=== PATIENT | male | born 1940 | race Caucasian/White ===

== ENCOUNTER 2016-12-29 17:29 | Emergency (ER) | payer BC, MEDICARE ==
[2016-12-29] MEDS ORDERED: Sodium Chloride 0.9% 10 ML Syringe FLUSH PRN (17:42)
[2016-12-29] MEDS ORDERED: Sodium Chloride 0.9% 2.5 ML Syringe FLUSH PRN (17:42)
--- NOTE | 2016-12-29 17:46 | EDM.PDOC ---
ED HPI GENERAL MEDICAL PROBLEM - General Chief Complaint: General Stated Complaint: UNK Time Seen by Provider: 12/29/16 17:43 Source of Information: Reports: Patient, Family History Limitations: Reports: No Limitations - History of Present Illness INITIAL COMMENTS - FREE TEXT/NARRATIVE: HISTORY AND PHYSICAL: []76-year-old male presenting from [facility] with concerns over elevated INR 4.1 hemoglobin 9.2 using a heart rate of 130 and O2 saturations of 88% History of Present Illness: []Patient was seen in the clinic yesterday the results of his laboratory values was reported today. Dr. Shayna Easley had called prior to the patient presenting. Expressing her concern over the INR low hemoglobin. Review of Systems: As per history of present illness and below otherwise all systems reviewed and negative. Past medical history: As per history of present illness and as reviewed below otherwise noncontributory. Surgical history: As per history of present illness and as reviewed below otherwise noncontributory. Social history: No reported history of drug or alcohol abuse. Family history: As per history of present illness and as reviewed below otherwise noncontributory. Physical exam: Alert gentleman brought in by his daughter and granddaughter. Cooperative with examination. Speaking in full sentences without shortness of breath. He does have COPD. HEENT: Atraumatic, normocehpalic, pupils reactive, negative for conjunctival pallor or scleral icterus, mucous membranes moist, throat clear, neck supple, nontender, trachea midline. Lungs: Clear to auscultation, breath sounds equal bilaterally, chest non tender. Heart: S1S2, regular, negative for clicks, rubs, or JVD. Per EKG patient is in atrial flutter 3-1. Abdomen: Soft, nondistended, nontender. Negative for masses or hepatossplenmegaly. Negative for costovertebral tenderness. Pelvis: Stable nontender. Genitourinary: Deferred. Rectal: Deferred Extremities: Atraumatic, negative for cords or calf pain. Neurovascular unremarkable. Neuro: Awake, alert, oriented. Cranial nerves II through XII unremarkable. Cerebellum unremarkable. Motor and sensory unremarkable throughout. Exam nonfocal. Discussed results with the patient and his family, questions were answered Diagnostics: [CBC CMP and PT/INR chest x-ray EKG troponin] Hemoccult is negative Therapeutics: [O2 ] Impression: [#1 atrial flutter #2 COPD #3 anemia] Plan: [Discharged to home Follow up with your primary care provider May need supplemental oxygen and will need this ordered. ] Definitive disposition and diagnosis as appropriate pending reevaluation and review of above. Onset: Gradual Duration: Chronic - Related Data Allergies Allergy/AdvReac Type Severity Reaction Status Date / Time No Known Allergies Allergy Verified 12/29/16 17:42 Home Meds: Home Meds Budesonide [Pulmicort] 12/29/16 [History] Diltiazem HCl [Diltiazem 24Hr Cd] 360 mg PO DAILY 12/29/16 [History] Docusate Sodium [Colace] 250 mg PO DAILY 12/29/16 [History] Glimepiride [Amaryl] 4 mg PO DAILY 12/29/16 [History] Ipratropium/Albuterol Sulfate [Combivent Respimat Inhal [place]] 1 puff INH QID [History] Levalbuterol HCl [Xopenex] 12/29/16 [History] Losartan [Cozaar] 12.5 mg PO DAILY 12/29/16 [History] Mometasone/Formoterol [Dulera 200-5 MCG] 1 puff INH BID 12/29/16 [History] Omeprazole 2 tab PO DAILY 12/29/16 [History] Spironolactone [Aldactone] 25 mg PO DAILY 12/29/16 [History] Tiotropium [Spiriva HandiHaler] 1 puff INH DAILY 12/29/16 [History] Warfarin [Coumadin] 5 mg PO DAILY 12/29/16 [History] metFORMIN [Glucophage XR] 2 tab PO BID 12/29/16 [History] ED ROS GENERAL - Review of Systems Review Of Systems: ROS reveals no pertinent complaints other than HPI. ED EXAM, GENERAL - Physical Exam Exam: See Below (See dictation) Course - Vital Signs Last Recorded V/S: Last Vital Signs Temp 37.2 C 12/29/16 17:38 Pulse 90 12/29/16 17:38 Resp 20 12/29/16 17:38 BP 122/72 12/29/16 17:38 Pulse Ox 90 L 12/29/16 17:38 - Orders/Labs/Meds Orders: Active Orders 24 hr Category Date Time Status Cardiac Monitoring [RC] . DIRECTED Care 12/29/16 17:42 Active EKG Documentation Completion [RC] STAT Care 12/29/16 17:42 Active Oxygen Therapy, ED [RC] ASDIRECTED Care 12/29/16 17:42 Active Chest 2V [CR] Stat Exams 12/29/16 17:43 Taken Sodium Chloride 0.9% [Saline Flush] Med 12/29/16 17:42 Active 10 ml FLUSH ASDIRECTED PRN Sodium Chloride 0.9% [Saline Flush] Med 12/29/16 17:42 Active 2.5 ml FLUSH ASDIRECTED PRN Saline Lock Insert [OM.PC] Stat Oth 12/29/16 17:42 Ordered Medication Orders Sodium Chloride (Saline Flush) 10 ml FLUSH ASDIRECTED PRN PRN Reason: Keep Vein Open Sodium Chloride (Saline Flush) 2.5 ml FLUSH ASDIRECTED PRN PRN Reason: Keep Vein Open Labs: Laboratory Tests 12/29/16 12/29/16 12/29/16 Range/Units 18:13 18:13 18:13 WBC 8.20 (4.0-11.0) K/uL RBC 4.38 L (4.50-5.90) M/uL Hgb 9.3 L (13.0-17.0) g/dL Hct 30.6 L (38.0-50.0) % MCV 69.9 L (80.0-98.0) fL MCH 21.2 L (27.0-32.0) pg MCHC 30.4 L (31.0-37.0) g/dL RDW Std Deviation 46.6 (28.0-62.0) fl RDW Coeff of Kaylin 19 H (11.0-15.0) % Plt Count 265 (150-400) K/uL MPV 8.60 (7.40-12.00) fL Neut % (Auto) 61.3 (48.0-80.0) % Lymph % (Auto) 24.0 (16.0-40.0) % [place] % (Auto) 10.2 (0.0-15.0) % Eos % (Auto) 3.9 (0.0-7.0) % Baso % (Auto) 0.6 (0.0-1.5) % Neut # (Auto) 5.0 (1.4-5.7) K/uL Lymph # (Auto) 2.0 (0.6-2.4) K/uL [place] # (Auto) 0.8 (0.0-0.8) K/uL Eos # (Auto) 0.3 (0.0-0.7) K/uL Baso # (Auto) 0.1 (0.0-0.1) K/uL Nucleated RBC % 0.0 /100WBC Nucleated RBCs # 0 K/uL INR 4.33 H (0.86-1.11) Sodium 135 L (136-146) mmol/L Potassium 4.2 (3.5-5.1) mmol/L Chloride 100 (98-110) mmol/L Carbon Dioxide 24 (21-31) mmol/L BUN 23 (6.0-23.0) mg/dL Creatinine 0.9 (0.6-1.5) mg/dL Est Cr Clr Drug Dosing 75.44 mL/min Estimated GFR (MDRD) > 60.0 ml/min Glucose 73 (60-110) mg/dL Calcium 9.4 (8.8-10.8) mg/dL Total Bilirubin 0.2 (0.1-1.5) mg/dL AST 18 (5-40) IU/L ALT 17 (8-54) IU/L Alkaline Phosphatase 103 (40-150) Troponin I < 0.10 (0.0-0.29) NG/ML Total Protein 7.4 (6.0-8.0) g/dL Albumin 4.0 (3.4-4.8) g/dL Globulin 3.4 (2.0-3.5) g/dL Albumin/Globulin Ratio 1.2 L (1.3-2.8) Urine Color Urine Appearance Urine pH (5.0-8.0) Ur Specific [place] (1.001-1.035) Urine Protein (NEGATIVE) mg/dL Urine Glucose (UA) (NEGATIVE) mg/dL Urine Ketones (NEGATIVE) mg/dL Urine Occult Blood (NEGATIVE) Urine Nitrite (NEGATIVE) Urine Bilirubin (NEGATIVE) Urine Urobilinogen (<2.0) EU/dL Ur Leukocyte Esterase (NEGATIVE) Urine RBC (0-2/HPF) Urine WBC (0-5/HPF) Ur Epithelial Cells (NONE-FEW) Amorphous Sediment (NEGATIVE) Urine Bacteria (NEGATIVE) 12/29/16 Range/Units 18:13 WBC (4.0-11.0) K/uL RBC (4.50-5.90) M/uL Hgb (13.0-17.0) g/dL Hct (38.0-50.0) % MCV (80.0-98.0) fL MCH (27.0-32.0) pg MCHC (31.0-37.0) g/dL RDW Std Deviation (28.0-62.0) fl RDW Coeff of Kaylin (11.0-15.0) % Plt Count (150-400) K/uL MPV (7.40-12.00) fL Neut % (Auto) (48.0-80.0) % Lymph % (Auto) (16.0-40.0) % [place] % (Auto) (0.0-15.0) % Eos % (Auto) (0.0-7.0) % Baso % (Auto) (0.0-1.5) % Neut # (Auto) (1.4-5.7) K/uL Lymph # (Auto) (0.6-2.4) K/uL [place] # (Auto) (0.0-0.8) K/uL Eos # (Auto) (0.0-0.7) K/uL Baso # (Auto) (0.0-0.1) K/uL Nucleated RBC % /100WBC Nucleated RBCs # K/uL INR (0.86-1.11) Sodium (136-146) mmol/L Potassium (3.5-5.1) mmol/L Chloride (98-110) mmol/L Carbon Dioxide (21-31) mmol/L BUN (6.0-23.0) mg/dL Creatinine (0.6-1.5) mg/dL Est Cr Clr Drug Dosing mL/min Estimated GFR (MDRD) ml/min Glucose (60-110) mg/dL Calcium (8.8-10.8) mg/dL Total Bilirubin (0.1-1.5) mg/dL AST (5-40) IU/L ALT (8-54) IU/L Alkaline Phosphatase (40-150) Troponin I (0.0-0.29) NG/ML Total Protein (6.0-8.0) g/dL Albumin (3.4-4.8) g/dL Globulin (2.0-3.5) g/dL Albumin/Globulin Ratio (1.3-2.8) Urine Color YELLOW Urine Appearance CLEAR Urine pH 6.0 (5.0-8.0) Ur Specific [place] 1.020 (1.001-1.035) Urine Protein NEGATIVE (NEGATIVE) mg/dL Urine Glucose (UA) 250 H (NEGATIVE) mg/dL Urine Ketones NEGATIVE (NEGATIVE) mg/dL Urine Occult Blood NEGATIVE (NEGATIVE) Urine Nitrite NEGATIVE (NEGATIVE) Urine Bilirubin NEGATIVE (NEGATIVE) Urine Urobilinogen 0.2 (<2.0) EU/dL Ur Leukocyte Esterase NEGATIVE (NEGATIVE) Urine RBC NONE SEEN (0-2/HPF) Urine WBC 0-1 (0-5/HPF) Ur Epithelial Cells MODERATE (NONE-FEW) Amorphous Sediment FEW (NEGATIVE) Urine Bacteria FEW (NEGATIVE) Meds: Medications Generic Name Dose Route Start Last Admin Trade Name Freq PRN Reason Stop Dose Admin Sodium Chloride 10 ml 12/29/16 17:42 Saline Flush FLUSH ASDIRECTED PRN Keep Vein Open Sodium Chloride 2.5 ml 12/29/16 17:42 Saline Flush FLUSH ASDIRECTED PRN Keep Vein Open Departure - Departure Time of Disposition: 19:50 Disposition: Home, Self-Care 01 Condition: Good Clinical Impression: Atrial flutter by electrocardiogram COPD (chronic obstructive pulmonary disease) Qualifiers: COPD type: unspecified COPD Qualified Code(s): J44.9 - Chronic obstructive pulmonary disease, unspecified - Discharge Information Referrals: PCP,None [Primary Care Provider] - Forms: ED Department Discharge Additional Instructions: The following information is given to patients seen in the emergency department who are being discharged to home. This information is to outline your options for follow-up care. We provide all patients seen in our emergency department with a follow-up referral. The need for follow-up, as well as the timing and circumstances, are variable depending upon the specifics of your emergency department visit. If you don't have a primary care physician on staff, we will provide you with a referral. We always advise you to contact your personal physician following an emergency department visit to inform them of the circumstance of the visit and for follow-up with them and/or the need for any referrals to a consulting specialist. The emergency department will also refer you to a specialist when appropriate. This referral assures that you have the opportunity for followup care with a specialist. All of these measure are taken in an effort to provide you with optimal care, which includes your followup. Under all circumstances we always encourage you to contact your private physician who remains a resource for coordinating your care. When calling for followup care, please make the office aware that this follow-up is from your recent emergency room visit. If for any reason you are refused follow-up, please contact the [facility] emergency department at and asked to speak to the emergency department charge nurse. Follow-up with Dr. Easley next week May need supplemental oxygen replacement No source of your bleeding was identified History of anemia Hypercoagulation Stop your Coumadin 2 days then resume - My Orders Last 24 Hours: My Active Orders 12/29/16 17:42 Cardiac Monitoring [RC] . DIRECTED EKG Documentation Completion [RC] STAT Oxygen Therapy, ED [RC] ASDIRECTED Sodium Chloride 0.9% [Saline Flush] 10 ml FLUSH ASDIRECTED PRN Sodium Chloride 0.9% [Saline Flush] 2.5 ml FLUSH ASDIRECTED PRN Saline Lock Insert [OM.PC] Stat 12/29/16 17:43 Chest 2V [CR] Stat - Assessment/Plan Last 24 Hours: My Active Orders 12/29/16 17:42 Cardiac Monitoring [RC] . DIRECTED EKG Documentation Completion [RC] STAT Oxygen Therapy, ED [RC] ASDIRECTED Sodium Chloride 0.9% [Saline Flush] 10 ml FLUSH ASDIRECTED PRN Sodium Chloride 0.9% [Saline Flush] 2.5 ml FLUSH ASDIRECTED PRN Saline Lock Insert [OM.PC] Stat 12/29/16 17:43 Chest 2V [CR] Stat
[2016-12-29 18:48] LABS: CHLORIDE,CL 100 mmol/L (98-110); SODIUM,NA 135 mmol/L (136-146)
--- NOTE | 2016-12-31 11:43 | CR ---
EXAM DATE: 12/29/16 PATIENT'S AGE: 76 Patient: BAILEY VALETNIN Facility: [place], [place] Site . Site : 1940 Study: XRay Chest [id number]/22/2017 6:55:49 PM Ordering Physician: Doctor Sommers Final Report: HISTORY: Elevated INR. FINDINGS: PA and lateral chest radiograph demonstrates median sternotomy wires and prior coronary artery bypass grafting. The cardiac silhouette is normal. Pulmonary vasculature is free of cephalization. No lobar consolidation or pleural effusion is seen. There is hyperaeration with flattening of the diaphragm. Linear density is noted in the right lateral base. Bone anchors are seen the right humeral head. IMPRESSION: 1. Prior median sternotomy and coronary artery bypass grafting. 2. Hyperaeration with right base atelectasis or scarring. 3. Otherwise, no acute cardiopulmonary disease. Dictated by Carlita Franks MD @ 12/29/2016 7:40:33 PM Dictated by: Carlita Franks MD @ 12/29/2016 19:40:43 (Electronic Signature) Report Signed by Proxy. SHAHRZAD
== END 2016-12-29 20:06 | disposition home or self-care (01) ==
LOC: MW.ED 17:29
DX: I48.92 Unspecified atrial flutter (principal); D64.9 Anemia, unspecified; J44.9 Chronic obstructive pulmonary disease, unspecified; Z79.899 Other long term (current) drug therapy; Z79.01 Long term (current) use of anticoagulants; Z79.84 Long term (current) use of oral hypoglycemic drugs
CPT/HCPCS: 36415; 71020; 71020-26; 80053; 81001; 84484; 85025; 85610; 93005; 99282; 99284-25

== ENCOUNTER 2017-03-11 16:36 | Emergency (ER) | payer BC, MEDICARE ==
--- NOTE | 2017-03-11 17:15 | EDM.PDOC ---
ED HPI GENERAL MEDICAL PROBLEM - General Stated Complaint: DIFFICULTY BREATHING Time Seen by Provider: 03/11/17 17:09 Source of Information: Reports: Patient History Limitations: Reports: No Limitations - History of Present Illness INITIAL COMMENTS - FREE TEXT/NARRATIVE: HISTORY AND PHYSICAL: []77-year-old male with COPD presents with increased shortness of breath History of Present Illness: []Patient is accompanied by his daughter and granddaughter did take a nebulizer treatment just prior to leaving home Patient has health care provided at [facility] and was seen yesterday Review of Systems: As per history of present illness and below otherwise all systems reviewed and negative. Past medical history: As per history of present illness and as reviewed below otherwise noncontributory. Surgical history: As per history of present illness and as reviewed below otherwise noncontributory. Social history: No reported history of drug or alcohol abuse. Family history: As per history of present illness and as reviewed below otherwise noncontributory. Physical exam: Alert and oriented gentleman who does not look severely distressed. Answering with questions in full sentences he does have to cough occasionally. HEENT: Atraumatic, normocehpalic, pupils reactive, negative for conjunctival pallor or scleral icterus, mucous membranes moist, throat clear, neck supple, nontender, trachea midline. Lungs: Crackles throughout on auscultation, breath sounds equal bilaterally shallow, chest non tender. Heart: S1S2, regular, negative for clicks, rubs, or JVD. Abdomen: Soft, nondistended, nontender. Negative for masses or hepatossplenmegaly. Negative for costovertebral tenderness. Pelvis: Stable nontender. Genitourinary: Deferred. Rectal: Deferred Extremities: Atraumatic, negative for cords or calf pain. Neurovascular unremarkable. Neuro: Awake, alert, oriented. Cranial nerves II through XII unremarkable. Cerebellum unremarkable. Motor and sensory unremarkable throughout. Exam nonfocal. Diagnostics: [CBC CMP chest x-ray] Therapeutics: []DuoNeb Impression: []Exacerbation of COPD Plan: []Discharged to home Prescription written for DuoNeb to his nebulizer treatments Follow up with Dr. Easley next week Definitive disposition and diagnosis as appropriate pending reevaluation and review of above. Onset: Gradual Duration: Hour(s): Location: Reports: Chest Quality: Reports: Ache, Same as Previous Episode Severity: Moderate Improves with: Reports: None Worsens with: Reports: None - Related Data Allergies Allergy/AdvReac Type Severity Reaction Status Date / Time No Known Allergies Allergy Verified 03/11/17 17:18 Home Meds: Home Meds Budesonide [Pulmicort] 12/29/16 [History] Diltiazem HCl [Diltiazem 24Hr Cd] 360 mg PO DAILY 12/29/16 [History] Docusate Sodium [Colace] 250 mg PO DAILY 12/29/16 [History] Glimepiride [Amaryl] 4 mg PO DAILY 12/29/16 [History] Ipratropium/Albuterol Sulfate [Combivent Respimat Inhal [place]] 1 puff INH QID [History] Levalbuterol HCl [Xopenex] 12/29/16 [History] Losartan [Cozaar] 12.5 mg PO DAILY 12/29/16 [History] Mometasone/Formoterol [Dulera 200-5 MCG] 1 puff INH BID 12/29/16 [History] Omeprazole 2 tab PO DAILY 12/29/16 [History] Spironolactone [Aldactone] 25 mg PO DAILY 12/29/16 [History] Tiotropium [Spiriva HandiHaler] 1 puff INH DAILY 12/29/16 [History] Warfarin [Coumadin] 5 mg PO DAILY 12/29/16 [History] metFORMIN [Glucophage XR] 2 tab PO BID 12/29/16 [History] Past Medical History Cardiovascular History: Reports: Afib, Hypertension Respiratory History: Reports: COPD Endocrine/Metabolic History: Reports: Diabetes, Type II - Past Surgical History Cardiovascular Surgical History: Reports: Valve Replacement Social & Family History - Family History Family Medical History: Noncontributory - Tobacco Use Smoking Status *Q: Never Smoker Second Hand Smoke Exposure: No - Caffeine Use Caffeine Use: Reports: Coffee, Soda - Recreational Drug Use Recreational Drug Use: No ED ROS GENERAL - Review of Systems Review Of Systems: ROS reveals no pertinent complaints other than HPI. ED EXAM, GENERAL - Physical Exam Exam: See Below (see dictation) Course - Vital Signs Last Recorded V/S: Last Vital Signs Temp 37.1 C 03/11/17 17:15 Pulse 135 H 02/02/18 18:40 Resp 16 03/11/17 18:40 BP 103/74 03/11/17 18:40 Pulse Ox 97 03/11/17 18:40 - Orders/Labs/Meds Orders: Active Orders 24 hr Category Date Time Status EKG Documentation Completion [RC] STAT Care 03/11/17 17:18 Active Oxygen Therapy, ED [RC] ASDIRECTED Care 03/11/17 17:44 Active RT Aerosol Therapy [RC] ASDIRECTED Care 03/11/17 18:07 Active Chest 2V [CR] Stat Exams 03/11/17 17:16 Taken Sodium Chloride 0.9% [Saline Flush] Med 03/11/17 17:16 Active 10 ml FLUSH ASDIRECTED PRN Sodium Chloride 0.9% [Saline Flush] Med 03/11/17 17:16 Active 2.5 ml FLUSH ASDIRECTED PRN Saline Lock Insert [OM.PC] Stat Oth 03/11/17 17:15 Ordered Medication Orders Sodium Chloride (Saline Flush) 10 ml FLUSH ASDIRECTED PRN PRN Reason: Keep Vein Open Sodium Chloride (Saline Flush) 2.5 ml FLUSH ASDIRECTED PRN PRN Reason: Keep Vein Open Labs: Laboratory Tests 03/11/17 03/11/17 Range/Units 17:25 17:25 WBC 6.85 (4.0-11.0) K/uL RBC 5.04 (4.50-5.90) M/uL Hgb 12.4 L (13.0-17.0) g/dL Hct 38.4 (38.0-50.0) % MCV 76.2 L (80.0-98.0) fL MCH 24.6 L (27.0-32.0) pg MCHC 32.3 (31.0-37.0) g/dL RDW Std Deviation 60.9 (28.0-62.0) fl RDW Coeff of Kaylin 22 H (11.0-15.0) % Plt Count 214 (150-400) K/uL MPV 8.80 (7.40-12.00) fL Neut % (Auto) 50.1 (48.0-80.0) % Lymph % (Auto) 23.6 (16.0-40.0) % [place] % (Auto) 7.6 (0.0-15.0) % Eos % (Auto) 17.5 H (0.0-7.0) % Baso % (Auto) 1.2 (0.0-1.5) % Neut # (Auto) 3.4 (1.4-5.7) K/uL Lymph # (Auto) 1.6 (0.6-2.4) K/uL [place] # (Auto) 0.5 (0.0-0.8) K/uL Eos # (Auto) 1.2 H (0.0-0.7) K/uL Baso # (Auto) 0.1 (0.0-0.1) K/uL Nucleated RBC % 0.0 /100WBC Nucleated RBCs # 0 K/uL Sodium 135 L (136-146) mmol/L Potassium 4.3 (3.5-5.1) mmol/L Chloride 99 (98-110) mmol/L Carbon Dioxide 25 (21-31) mmol/L BUN 14 (6.0-23.0) mg/dL Creatinine 1.2 (0.6-1.5) mg/dL Est Cr Clr Drug Dosing 58.99 mL/min Estimated GFR (MDRD) 58.6 ml/min Glucose 205 H (60-110) mg/dL Calcium 10.0 (8.8-10.8) mg/dL Total Bilirubin 0.2 (0.1-1.5) mg/dL AST 15 (5-40) IU/L ALT 13 (8-54) IU/L Alkaline Phosphatase 111 (40-150) Total Protein 7.4 (6.0-8.0) g/dL Albumin 4.3 (3.4-4.8) g/dL Globulin 3.1 (2.0-3.5) g/dL Albumin/Globulin Ratio 1.4 (1.3-2.8) Meds: Medications Generic Name Dose Route Start Last Admin Trade Name Freq PRN Reason Stop Dose Admin Sodium Chloride 10 ml 03/11/17 17:16 Saline Flush FLUSH ASDIRECTED PRN Keep Vein Open Sodium Chloride 2.5 ml 03/11/17 17:16 Saline Flush FLUSH ASDIRECTED PRN Keep Vein Open Discontinued Medications Generic Name Dose Route Start Last Admin Trade Name Freq PRN Reason Stop Dose Admin Albuterol/Ipratropium 3 ml 03/11/17 18:07 03/11/17 18:32 Duoneb 3.0-0.5 Mg/3 Ml NEB 03/11/17 18:08 3 ml ONETIME ONE Administration Methylprednisolone Sodium Succinate 125 mg 03/11/17 17:16 03/11/17 18:05 Solu-Medrol IVPUSH 03/11/17 17:17 125 mg ONETIME ONE Administration Departure - Departure Time of Disposition: 19:24 Disposition: Home, Self-Care 01 Condition: Good Clinical Impression: COPD (chronic obstructive pulmonary disease) Qualifiers: COPD type: unspecified COPD Qualified Code(s): J44.9 - Chronic obstructive pulmonary disease, unspecified - Discharge Information Instructions: Shortness of Breath, [id number], Chronic Obstructive Pulmonary Disease Exacerbation, [id number] Referrals: Shayna Easley MD [Primary Care Provider] - Forms: ED Department Discharge Additional Instructions: The following information is given to patients seen in the emergency department who are being discharged to home. This information is to outline your options for follow-up care. We provide all patients seen in our emergency department with a follow-up referral. The need for follow-up, as well as the timing and circumstances, are variable depending upon the specifics of your emergency department visit. If you don't have a primary care physician on staff, we will provide you with a referral. We always advise you to contact your personal physician following an emergency department visit to inform them of the circumstance of the visit and for follow-up with them and/or the need for any referrals to a consulting specialist. The emergency department will also refer you to a specialist when appropriate. This referral assures that you have the opportunity for followup care with a specialist. All of these measure are taken in an effort to provide you with optimal care, which includes your followup. Under all circumstances we always encourage you to contact your private physician who remains a resource for coordinating your care. When calling for followup care, please make the office aware that this follow-up is from your recent emergency room visit. If for any reason you are refused follow-up, please contact the [facility] emergency department at and asked to speak to the emergency department charge nurse. You have exacerbation of your COPD Prescription has been written for you to take to [facility] service area for DuoNeb treatments Follow-up with Dr. Easley in [place] - My Orders Last 24 Hours: My Active Orders 03/11/17 17:15 Saline Lock Insert [OM.PC] Stat 03/11/17 17:16 Chest 2V [CR] Stat Sodium Chloride 0.9% [Saline Flush] 10 ml FLUSH ASDIRECTED PRN Sodium Chloride 0.9% [Saline Flush] 2.5 ml FLUSH ASDIRECTED PRN 03/11/17 17:18 EKG Documentation Completion [RC] STAT 03/11/17 17:44 Oxygen Therapy, ED [RC] ASDIRECTED 03/11/17 18:07 RT Aerosol Therapy [RC] ASDIRECTED - Assessment/Plan Last 24 Hours: My Active Orders 03/11/17 17:15 Saline Lock Insert [OM.PC] Stat 03/11/17 17:16 Chest 2V [CR] Stat Sodium Chloride 0.9% [Saline Flush] 10 ml FLUSH ASDIRECTED PRN Sodium Chloride 0.9% [Saline Flush] 2.5 ml FLUSH ASDIRECTED PRN 03/11/17 17:18 EKG Documentation Completion [RC] STAT 03/11/17 17:44 Oxygen Therapy, ED [RC] ASDIRECTED 03/11/17 18:07 RT Aerosol Therapy [RC] ASDIRECTED
[2017-03-11] MEDS ORDERED: Sodium Chloride 0.9% 2.5 ML Syringe FLUSH PRN (17:16)
[2017-03-11] MEDS ORDERED: methylPREDNISolone Sodium Succinate 125 MG/2 ML SDV IVPUSH ONE (17:16)
[2017-03-11] MEDS ORDERED: Sodium Chloride 0.9% 10 ML Syringe FLUSH PRN (17:16)
[2017-03-11] MEDS ORDERED: Albuterol/Ipratropium 3.0-0.5 MG/3 ML Neb Soln NEB ONE (18:07)
--- NOTE | 2017-03-14 11:09 | CR ---
EXAM DATE: 03/11/17 PATIENT'S AGE: 77 Patient: BAILEY VALENTIN Facility: [place], [place] Site . Site : 1940 Study: XRay Chest [id number] 6:28:19 PM Ordering Physician: Doctor Sommers Final Report: CHEST 2 VIEWS INDICATION: Obstructive lung disease. COMPARISON: December 29, 2016. IMPRESSION: Normal heart size and vascular pattern. Lungs are clear. No pneumothorax or pleural abnormality. No overall change Stable hyperinflation. Stable postsurgical changes of previous coronary artery bypass. Dictated by Wade Haynes MD @ Mar 11 2017 6:49PM (Electronic Signature) Report Signed by Proxy. SHAHRZAD
== END 2017-03-11 19:37 | disposition home or self-care (01) ==
LOC: MW.ED 16:36
DX: J44.9 Chronic obstructive pulmonary disease, unspecified (principal); I10 Essential (primary) hypertension; I48.91 Unspecified atrial fibrillation; E11.9 Type 2 diabetes mellitus without complications; Z95.2 Presence of prosthetic heart valve; Z79.01 Long term (current) use of anticoagulants; Z79.84 Long term (current) use of oral hypoglycemic drugs; Z79.899 Other long term (current) drug therapy
CPT/HCPCS: 36415; 71046; 80053; 85025; 93005; 94640; 96374; 99285; J2930; 99283

== ENCOUNTER 2017-04-19 22:49 | Inpatient (IN) | payer MEDICARE, BC ==
[2017-04-19] MEDS ORDERED: Sodium Chloride 0.9% 10 ML Syringe FLUSH PRN (23:02)
--- NOTE | 2017-04-19 23:02 | EDM.PDOC ---
ED HPI GENERAL MEDICAL PROBLEM - General Chief Complaint: Neuro Symptoms/Deficits Stated Complaint: UNK Time Seen by Provider: 04/19/17 22:56 - History of Present Illness INITIAL COMMENTS - FREE TEXT/NARRATIVE: HISTORY AND PHYSICAL: History of present illness: The patient is a 77-year-old male who follows at [facility] and has a history of kvl-[id number] diabetes hypertension COPD A. fib/A flutter for which he is taking Coumadin and presents with daughter with a one year progressive history of forgetfulness and confusion which she is concerned has accelerated over the last few days to one week. Daughter tells me that the one thing that concerned her today was he was having more gait instability and when he was driving the car he had great difficulty controlling the wheel and staying in the [place]. Patient states he has no complaints of headache neck pain back pain chest pain abdominal pain nausea or vomiting and has had no diarrhea. He has no urinary complaints and the patient lives with the daughter who says he 's been eating very well. He has not had any fevers or upper respiratory symptoms. She says he has not had any recent falls. Patient also has a history of a valve replacement with a porcine valve and follows only with Dr. Easley at [facility]. I asked the daughter when the patient was last there and she says about a week ago and she said she did not have a dialogue about these ongoing progressive symptoms. In my conversation with the patient he started talking about how he was visiting with a nurse in [facility] today talking about his medications and the daughter states that he was not there that they used to live there and that the story is not correct. Patient has much better long-term memory than short-term and overall is confused and thinks it is 1979. As I was interviewing the patient and the family at bedside we did the point-of- care glucose and when the daughter knew the number she says that that is not unusual for him to be very variable and run on the high side. I asked her whether or not his provider in the clinic was adjusting his medication or adding any meds and she said no Review of systems: As per history of present illness and below otherwise all systems reviewed and negative. Past medical history: As per history of present illness and as reviewed below otherwise noncontributory. Surgical history: As per history of present illness and as reviewed below otherwise noncontributory. Social history: No reported history of drug or alcohol abuse. Family history: As per history of present illness and as reviewed below otherwise noncontributory. Physical exam: Gen.: Well-developed well-nourished man who is nontoxic and ambulated into the ED and was wobbly/ataxic without distress. Vital signs are noted by me. Speech is intact without slurring HEENT: Atraumatic, normocephalic, pupils reactive, negative for conjunctival pallor or scleral icterus, mucous membranes moist, throat clear, neck supple, nontender, trachea midline. Is no cervical adenopathy or nuchal rigidity Lungs: There are coarse breath sounds bilaterally without any overt wheezing or stridor, there is no work of breathing breath sounds equal bilaterally, chest nontender. Heart: S1S2, regular, rate but irregular rhythm consistent with his A. fib/A flutter, there is no overt murmurs appreciated Abdomen: Soft, nondistended, nontender. Negative for masses or hepatosplenomegaly. Negative for costovertebral tenderness. Pelvis: Stable nontender. Genitourinary: Deferred. Rectal: Deferred. Extremities: Atraumatic, negative for cords or calf pain. Neurovascular unremarkable. No pedal edema or leg asymmetry and full range of motion Neuro: Awake, alert, oriented to person and place but not time Cranial nerves II through XII unremarkable. Cerebellum unremarkable. Motor and sensory unremarkable throughout. Exam nonfocal. The patient has no drift and gait is as assessed above Skin: Normal turgor no evidence of any rashes or lesions and no diaphoresis Diagnostics: EKG CBC CMP INR and serum ketones hemoglobin A1c TSH troponin UA chest x-ray CT scan of the head lactic acid, blood cultures 2 Therapeutics: IV O2 monitor Lantus, Levaquin [id number]: Case was discussed with our hospitalist Dr. Ann who would like the patient to be treated as a pneumonia with Levaquin after blood cultures and lactic acid are sent. He Would also like me to give Lantus 15 units subcutaneous for the hyperglycemia. He is aware of the patient's accelerated confusion with new gait ataxia and will address that tomorrow with more imaging. I will discussed this conversation and all test results with the patient and daughter at bedside and plan for inpatient admission with telemetry Critical care time excluding procedures:31min Impression: Acute on chronic confusion with ataxia, etiology unclear stable; history of atrial flutter on Coumadin, hyperglycemia with mild ketosis, bibasilar pneumonia Definitive disposition and diagnosis as appropriate pending reevaluation and review of above. - Related Data Allergies Allergy/AdvReac Type Severity Reaction Status Date / Time No Known Allergies Allergy Verified 04/19/17 22:59 Home Meds: Home Meds Budesonide [Pulmicort] 12/29/16 [History] Diltiazem HCl [Diltiazem 24Hr Cd] 360 mg PO DAILY 12/29/16 [History] Docusate Sodium [Colace] 250 mg PO DAILY 12/29/16 [History] Glimepiride [Amaryl] 4 mg PO DAILY 12/29/16 [History] Ipratropium/Albuterol Sulfate [Combivent Respimat Inhal [place]] 1 puff INH QID [History] Levalbuterol HCl [Xopenex] 12/29/16 [History] Losartan [Cozaar] 12.5 mg PO DAILY 12/29/16 [History] Mometasone/Formoterol [Dulera 200-5 MCG] 1 puff INH BID 12/29/16 [History] Omeprazole 2 tab PO DAILY 12/29/16 [History] Spironolactone [Aldactone] 25 mg PO DAILY 12/29/16 [History] Tiotropium [Spiriva HandiHaler] 1 puff INH DAILY 12/29/16 [History] Warfarin [Coumadin] 5 mg PO DAILY 12/29/16 [History] metFORMIN [Glucophage XR] 2 tab PO BID 12/29/16 [History] Past Medical History Cardiovascular History: Reports: Afib, Hypertension Respiratory History: Reports: COPD Endocrine/Metabolic History: Reports: Diabetes, Type II - Past Surgical History Cardiovascular Surgical History: Reports: Valve Replacement Social & Family History - Family History Family Medical History: Noncontributory - Tobacco Use Smoking Status *Q: Never Smoker Second Hand Smoke Exposure: No - Caffeine Use Caffeine Use: Reports: Coffee, Soda - Recreational Drug Use Recreational Drug Use: No ED ROS GENERAL - Review of Systems Review Of Systems: ROS reveals no pertinent complaints other than HPI. ED EXAM, GENERAL - Physical Exam Exam: See Below (See dictation) Course - Vital Signs Last Recorded V/S: Last Vital Signs Temp 36.6 C 04/19/17 23:00 Pulse 91 04/19/17 23:56 Resp 18 04/19/17 23:56 BP 120/68 04/19/17 23:56 Pulse Ox 93 L 04/19/17 23:56 - Orders/Labs/Meds Orders: Active Orders 24 hr Category Date Time Status Patient Status [ADT] Stat ADT 04/20/17 00:10 Ordered Cardiac Monitoring [RC] . DIRECTED Care 04/19/17 23:02 Active EKG Documentation Completion [RC] STAT Care 04/19/17 23:02 Active Oxygen Therapy, ED [RC] ASDIRECTED Care 04/19/17 23:02 Active Pulse Oximetry [RC] ASDIRECTED Care 04/19/17 23:02 Active Chest 1V Frontal [CR] Stat Exams 04/19/17 23:13 Taken Head wo Cont [CT] Stat Exams 04/19/17 23:13 Taken CULTURE BLOOD [BC] Stat Lab 04/20/17 00:06 Ordered CULTURE BLOOD [BC] Stat Lab 04/20/17 00:06 Ordered LACTATE WITH REFLEX [BG] Stat Lab 04/20/17 00:06 Ordered Insulin Glarg,Human.Rec.Analog [LantUS Solostar] Med 04/20/17 00:09 Once 15 units SUBCUT BEDTIME ONE Levofloxacin/Dextrose 5%-Water [Levaquin in D5W 750 MG/ Med 04/20/17 00:06 Ordered 150 ML] 750 mg Premix Bag 1 bag IV ONETIME Sodium Chloride 0.9% [Saline Flush] Med 04/19/17 23:02 Active 10 ml FLUSH ASDIRECTED PRN Sodium Chloride 0.9% [Saline Flush] Med 04/19/17 23:02 Active 2.5 ml FLUSH ASDIRECTED PRN Blood Culture x2 Reflex Set [OM.PC] Stat Oth 04/20/17 00:06 Ordered Saline Lock Insert [OM.PC] Stat Oth 04/19/17 23:02 Ordered Medication Orders Levofloxacin/Dextrose 750 mg/ (Premix) 150 mls @ 100 mls/hr IV ONETIME ONE Stop: 04/20/17 01:35 Sodium Chloride (Saline Flush) 10 ml FLUSH ASDIRECTED PRN PRN Reason: Keep Vein Open Sodium Chloride (Saline Flush) 2.5 ml FLUSH ASDIRECTED PRN PRN Reason: Keep Vein Open Labs: Laboratory Tests 04/19/17 04/19/17 04/19/17 Range/Units 23:09 23:15 23:15 WBC 11.01 H (4.0-11.0) K/uL RBC 4.54 (4.50-5.90) M/uL Hgb 11.6 L (13.0-17.0) g/dL Hct 35.4 L (38.0-50.0) % MCV 78.0 L (80.0-98.0) fL MCH 25.6 L (27.0-32.0) pg MCHC 32.8 (31.0-37.0) g/dL RDW Std Deviation 53.3 (28.0-62.0) fl RDW Coeff of [place] 19 H (11.0-15.0) % Plt Count 214 (150-400) K/uL MPV 9.60 (7.40-12.00) fL Neut % (Auto) 85.6 H (48.0-80.0) % Lymph % (Auto) 5.4 L (16.0-40.0) % [place] % (Auto) 8.4 (0.0-15.0) % Eos % (Auto) 0.4 (0.0-7.0) % Baso % (Auto) 0.2 (0.0-1.5) % Neut # (Auto) 9.4 H (1.4-5.7) K/uL Lymph # (Auto) 0.6 (0.6-2.4) K/uL [place] # (Auto) 0.9 H (0.0-0.8) K/uL Eos # (Auto) 0.0 (0.0-0.7) K/uL Baso # (Auto) 0.0 (0.0-0.1) K/uL Nucleated RBC % 0.0 /100WBC Nucleated RBCs # 0 K/uL INR Sodium 128 L (136-148) mmol/L Potassium 4.4 (3.5-5.1) mmol/L Chloride 93 L (98-107) mmol/L Carbon Dioxide 24.3 (21.0-32.0) mmol/L BUN 18 (7.0-18.0) mg/dL Creatinine 1.1 (0.8-1.3) mg/dL Est Cr Clr Drug Dosing TNP Estimated GFR (MDRD) > 60.0 ml/min Glucose 283 H (74-106) mg/dL POC Glucose 335 H (60-110) mg/dL Hemoglobin A1c (4.5-6.2) % Calcium 8.8 (8.5-10.1) mg/dL Total Bilirubin 0.7 (0.2-1.0) mg/dL AST 20 (15-37) IU/L ALT 18 (14-63) IU/L Alkaline Phosphatase 98 (46-116) U/L Troponin I < 0.050 (0.000-0.056) ng/mL Total Protein 7.3 (6.4-8.2) g/dL Albumin 3.4 (3.4-5.0) g/dL Globulin 3.9 H (2.0-3.5) g/dL Albumin/Globulin Ratio 0.9 L (1.3-2.8) TSH 3rd Generation 1.34 (0.36-3.74) uIU/mL Urine Color Urine Appearance Urine pH (5.0-8.0) Ur Specific [place] (1.001-1.035) Urine Protein (NEGATIVE) mg/dL Urine Glucose (UA) (NEGATIVE) mg/dL Urine Ketones (NEGATIVE) mg/dL Urine Occult Blood (NEGATIVE) Urine Nitrite (NEGATIVE) Urine Bilirubin (NEGATIVE) Urine Ictotest Urine Urobilinogen (<2.0) EU/dL Ur Leukocyte Esterase (NEGATIVE) Urine RBC (0-2/HPF) Urine WBC (0-5/HPF) Ur Epithelial Cells (NONE-FEW) Urine Bacteria (NEGATIVE) Ketones (NEG) 04/19/17 04/19/17 04/19/17 Range/Units 23:15 23:15 23:15 WBC (4.0-11.0) K/uL RBC (4.50-5.90) M/uL Hgb (13.0-17.0) g/dL Hct (38.0-50.0) % MCV (80.0-98.0) fL MCH (27.0-32.0) pg MCHC (31.0-37.0) g/dL RDW Std Deviation (28.0-62.0) fl RDW Coeff of [place] (11.0-15.0) % Plt Count (150-400) K/uL MPV (7.40-12.00) fL Neut % (Auto) (48.0-80.0) % Lymph % (Auto) (16.0-40.0) % [place] % (Auto) (0.0-15.0) % Eos % (Auto) (0.0-7.0) % Baso % (Auto) (0.0-1.5) % Neut # (Auto) (1.4-5.7) K/uL Lymph # (Auto) (0.6-2.4) K/uL [place] # (Auto) (0.0-0.8) K/uL Eos # (Auto) (0.0-0.7) K/uL Baso # (Auto) (0.0-0.1) K/uL Nucleated RBC % /100WBC Nucleated RBCs # K/uL INR 2.43 Sodium (136-148) mmol/L Potassium (3.5-5.1) mmol/L Chloride (98-107) mmol/L Carbon Dioxide (21.0-32.0) mmol/L BUN (7.0-18.0) mg/dL Creatinine (0.8-1.3) mg/dL Est Cr Clr Drug Dosing Estimated GFR (MDRD) ml/min Glucose (74-106) mg/dL POC Glucose (60-110) mg/dL Hemoglobin A1c 12.0 H (4.5-6.2) % Calcium (8.5-10.1) mg/dL Total Bilirubin (0.2-1.0) mg/dL AST (15-37) IU/L ALT (14-63) IU/L Alkaline Phosphatase (46-116) U/L Troponin I (0.000-0.056) ng/mL Total Protein (6.4-8.2) g/dL Albumin (3.4-5.0) g/dL Globulin (2.0-3.5) g/dL Albumin/Globulin Ratio (1.3-2.8) TSH 3rd Generation (0.36-3.74) uIU/mL Urine Color Urine Appearance Urine pH (5.0-8.0) Ur Specific [place] (1.001-1.035) Urine Protein (NEGATIVE) mg/dL Urine Glucose (UA) (NEGATIVE) mg/dL Urine Ketones (NEGATIVE) mg/dL Urine Occult Blood (NEGATIVE) Urine Nitrite (NEGATIVE) Urine Bilirubin (NEGATIVE) Urine Ictotest Urine Urobilinogen (<2.0) EU/dL Ur Leukocyte Esterase (NEGATIVE) Urine RBC (0-2/HPF) Urine WBC (0-5/HPF) Ur Epithelial Cells (NONE-FEW) Urine Bacteria (NEGATIVE) Ketones SMALL H (NEG) 04/19/17 Range/Units 23:24 WBC (4.0-11.0) K/uL RBC (4.50-5.90) M/uL Hgb (13.0-17.0) g/dL Hct (38.0-50.0) % MCV (80.0-98.0) fL MCH (27.0-32.0) pg MCHC (31.0-37.0) g/dL RDW Std Deviation (28.0-62.0) fl RDW Coeff of [place] (11.0-15.0) % Plt Count (150-400) K/uL MPV (7.40-12.00) fL Neut % (Auto) (48.0-80.0) % Lymph % (Auto) (16.0-40.0) % [place] % (Auto) (0.0-15.0) % Eos % (Auto) (0.0-7.0) % Baso % (Auto) (0.0-1.5) % Neut # (Auto) (1.4-5.7) K/uL Lymph # (Auto) (0.6-2.4) K/uL [place] # (Auto) (0.0-0.8) K/uL Eos # (Auto) (0.0-0.7) K/uL Baso # (Auto) (0.0-0.1) K/uL Nucleated RBC % /100WBC Nucleated RBCs # K/uL INR Sodium (136-148) mmol/L Potassium (3.5-5.1) mmol/L Chloride (98-107) mmol/L Carbon Dioxide (21.0-32.0) mmol/L BUN (7.0-18.0) mg/dL Creatinine (0.8-1.3) mg/dL Est Cr Clr Drug Dosing Estimated GFR (MDRD) ml/min Glucose (74-106) mg/dL POC Glucose (60-110) mg/dL Hemoglobin A1c (4.5-6.2) % Calcium (8.5-10.1) mg/dL Total Bilirubin (0.2-1.0) mg/dL AST (15-37) IU/L ALT (14-63) IU/L Alkaline Phosphatase (46-116) U/L Troponin I (0.000-0.056) ng/mL Total Protein (6.4-8.2) g/dL Albumin (3.4-5.0) g/dL Globulin (2.0-3.5) g/dL Albumin/Globulin Ratio (1.3-2.8) TSH 3rd Generation (0.36-3.74) uIU/mL Urine Color YELLOW Urine Appearance CLEAR Urine pH 5.5 (5.0-8.0) Ur Specific [place] 1.020 (1.001-1.035) Urine Protein TRACE (NEGATIVE) mg/dL Urine Glucose (UA) >=1000 (NEGATIVE) mg/dL Urine Ketones 40 H (NEGATIVE) mg/dL Urine Occult Blood NEGATIVE (NEGATIVE) Urine Nitrite NEGATIVE (NEGATIVE) Urine Bilirubin SMALL H (NEGATIVE) Urine Ictotest NEGATIVE Urine Urobilinogen 0.2 (<2.0) EU/dL Ur Leukocyte Esterase NEGATIVE (NEGATIVE) Urine RBC 0-2 (0-2/HPF) Urine WBC 0-1 (0-5/HPF) Ur Epithelial Cells RARE (NONE-FEW) Urine Bacteria FEW (NEGATIVE) Ketones (NEG) Meds: Medications Generic Name Dose Route Start Last Admin Trade Name Freq PRN Reason Stop Dose Admin Levofloxacin/Dextrose 750 mg/ 150 mls @ 100 mls/hr 04/20/17 00:06 Premix IV 04/20/17 01:35 ONETIME ONE Sodium Chloride 10 ml 04/19/17 23:02 Saline Flush FLUSH ASDIRECTED PRN Keep Vein Open Sodium Chloride 2.5 ml 04/19/17 23:02 Saline Flush FLUSH ASDIRECTED PRN Keep Vein Open Departure - Departure Time of Disposition: 00:13 Disposition: Admitted As Inpatient 65 Condition: Good Clinical Impression: Confusion, Hyperglycemia Pneumonia Qualifiers: Pneumonia type: due to unspecified organism Laterality: bilateral Lung location : lower lobe of lung Qualified Code(s): J18.9 - Pneumonia, unspecified organism - Discharge Information Referrals: PCP,None [Primary Care Provider] - Forms: ED Department Discharge - My Orders Last 24 Hours: My Active Orders 04/19/17 23:02 Cardiac Monitoring [RC] . DIRECTED EKG Documentation Completion [RC] STAT Oxygen Therapy, ED [RC] ASDIRECTED Pulse Oximetry [RC] ASDIRECTED Sodium Chloride 0.9% [Saline Flush] 10 ml FLUSH ASDIRECTED PRN Sodium Chloride 0.9% [Saline Flush] 2.5 ml FLUSH ASDIRECTED PRN Saline Lock Insert [OM.PC] Stat 04/19/17 23:13 Chest 1V Frontal [CR] Stat Head wo Cont [CT] Stat 04/20/17 00:06 CULTURE BLOOD [BC] Stat CULTURE BLOOD [BC] Stat LACTATE WITH REFLEX [BG] Stat Levofloxacin/Dextrose 5%-Water [Levaquin in D5W 750 MG/150 ML] 750 mg Premix Bag 1 bag IV ONETIME Blood Culture x2 Reflex Set [OM.PC] Stat 04/20/17 00:09 Insulin Glarg,Human.Rec.Analog [LantUS Solostar] 15 units SUBCUT BEDTIME ONE 04/20/17 00:10 Patient Status [ADT] Stat - Assessment/Plan Last 24 Hours: My Active Orders 04/19/17 23:02 Cardiac Monitoring [RC] . DIRECTED EKG Documentation Completion [RC] STAT Oxygen Therapy, ED [RC] ASDIRECTED Pulse Oximetry [RC] ASDIRECTED Sodium Chloride 0.9% [Saline Flush] 10 ml FLUSH ASDIRECTED PRN Sodium Chloride 0.9% [Saline Flush] 2.5 ml FLUSH ASDIRECTED PRN Saline Lock Insert [OM.PC] Stat 04/19/17 23:13 Chest 1V Frontal [CR] Stat Head wo Cont [CT] Stat 04/20/17 00:06 CULTURE BLOOD [BC] Stat CULTURE BLOOD [BC] Stat LACTATE WITH REFLEX [BG] Stat Levofloxacin/Dextrose 5%-Water [Levaquin in D5W 750 MG/150 ML] 750 mg Premix Bag 1 bag IV ONETIME Blood Culture x2 Reflex Set [OM.PC] Stat 04/20/17 00:09 Insulin Glarg,Human.Rec.Analog [LantUS Solostar] 15 units SUBCUT BEDTIME ONE 04/20/17 00:10 Patient Status [ADT] Stat
[2017-04-19 23:52] LABS: CHLORIDE,CL 93 mmol/L (98-107); SODIUM,NA 128 mmol/L (136-148)
[2017-04-20] MEDS ORDERED: Levofloxacin/Dextrose 5%-Water 750 MG in Premix Bag 1 BAG IV ONE (00:06)
[2017-04-20] MEDS ORDERED: Insulin Glargine,Human Rec. Analog 100 Units/ML 3 ML Pen SUBCUT ONE (00:09)
[2017-04-20] MEDS: Sodium Chloride 0.9% 1,000 ML IV SCH ×2 (00:30→22:22)
[2017-04-20] MEDS: Sodium Chloride 0.9% 2.5 ML Syringe FLUSH PRN ×2 (00:30→00:31)
[2017-04-20] MEDS ORDERED: Sodium Chloride 0.9% 1,000 ML IV SCH (01:15)
[2017-04-20] MEDS: Albuterol/Ipratropium 3.0-0.5 MG/3 ML Neb Soln NEB SCH ×5 (01:43→23:43)
[2017-04-20] MEDS ORDERED: Albuterol/Ipratropium 4 GM Inhalation Spray INH PRN (02:56)
[2017-04-20 05:36] LABS: CHLORIDE,CL 94 mmol/L (98-107); SODIUM,NA 127 mmol/L (136-148)
[2017-04-20] MEDS: Tiotropium Inhaler 18 MCG Inhalation Powder Cap Kit of 5 INH SCH (08:35)
--- NOTE | 2017-04-20 09:04 | PCM.HP ---
H&P History of Present Illness - General Date of Service: 04/20/17 Admit Problem/Dx: Admission Diagnosis/Problem Admission Diagnosis/Problem Confusion Source of Information: Patient - History of Present Illness Initial Comments - Free Text/Narative: This is a 77-year-old male who is being admitted secondary to increased confusion/forgetfulness, patient has a significant past medical history of type 2 diabetes mellitus, hypertension, COPD, atrial fibrillation/atrial flutter. When trying to assess the patient today he appeared confused and was not a good historian in regards to his medical condition. According to family the patient confusion and forgetfulness has been progressing over the past year however has increased in the past few days. There does not appear to be any neurological dysfunction or weakness at this point in time. - Related Data Allergies/Adverse Reactions: Allergies Allergy/AdvReac Type Severity Reaction Status Date / Time No Known Allergies Allergy Verified 04/20/17 02:44 Home Medications: Home Meds Albuterol [Proventil HFA] 2 puff INH Q4HR PRN 04/20/17 [History] Albuterol [Proventil Neb Soln] 0.63 mg NEB Q6HR PRN 04/20/17 [History] Diltiazem HCl [Diltiazem 24Hr Cd] 360 mg PO DAILY 04/20/17 [History] Docusate Sodium [Colace] 250 mg PO DAILY 04/20/17 [History] Ferrous Sulfate 325 mg PO BID 04/20/17 [History] Furosemide [Lasix] 20 mg PO DAILY 04/20/17 [History] Glimepiride 4 mg PO DAILY 04/20/17 [History] Ipratropium/Albuterol Sulfate [Combivent Respimat Inhal [place]] 1 puff IH Q6H PRN 04/20/17 [History] Losartan [Cozaar] 25 mg PO DAILY 04/20/17 [History] Mometasone/Formoterol [Dulera 200-5 MCG] 1 puff INH Q6HR PRN 04/20/17 [History] Omeprazole 40 mg PO DAILY 04/20/17 [History] Spironolactone [Aldactone] 25 mg PO DAILY 04/20/17 [History] Tiotropium [Spiriva] 1 puff INH DAILY 04/20/17 [History] Warfarin [Coumadin] 5 mg PO DAILY 04/20/17 [History] metFORMIN HCl [Metformin HCl] 1,000 mg PO BID 04/20/17 [History] Past Medical History HEENT History: Reports: Hard of Hearing Cardiovascular History: Reports: Afib, Heart Valve Replacement, Hypertension Respiratory History: Reports: COPD Gastrointestinal History: Reports: GERD Musculoskeletal History: Reports: None Neurological History: Reports: None Psychiatric History: Reports: None Endocrine/Metabolic History: Reports: Diabetes, Type II Hematologic History: Reports: None Immunologic History: Reports: None Oncologic (Cancer) History: Reports: None Dermatologic History: Reports: None - Infectious Disease History Infectious Disease History: Reports: None - Past Surgical History Head Surgeries/Procedures: Reports: None HEENT Surgical History: Reports: Cataract Surgery Cardiovascular Surgical History: Reports: Valve Replacement Musculoskeletal Surgical History: Reports: Shoulder Surgery Social & Family History - Family History Family Medical History: Noncontributory Endocrine/Metabolic: Reports: Diabetes, type II - Tobacco Use Smoking Status *Q: Never Smoker Used Tobacco, but Quit: Yes Month/Year Tobacco Last Used: 47 Second Hand Smoke Exposure: No - Caffeine Use Caffeine Use: Reports: Coffee - Recreational Drug Use Recreational Drug Use: No H&P Review of Systems - Review of Systems: Review Of Systems: ROS reveals no pertinent complaints other than HPI. Exam - Exam Exam: See Below - Vital Signs Vital Signs: Last Vital Signs Temp 37.1 C 04/20/17 04:37 Pulse 93 04/20/17 04:37 Resp 20 04/20/17 04:37 BP 113/54 L 04/20/17 04:37 Pulse Ox 93 L 04/20/17 04:37 Weight: 85.321 kg - Exam Quality Assessment: Supplemental Oxygen General: Cooperative Lungs: Decreased Breath Sounds, Wheezing Cardiovascular: Tachycardia GI/Abdominal Exam: Normal Bowel Sounds - Patient Data Lab Results Last 24 hrs: Laboratory Results - last 24 hr 04/20/17 04/20/17 04/20/17 Range/Units 04:55 04:55 04:55 WBC 10.33 (4.0-11.0) K/uL RBC 4.02 L (4.50-5.90) M/uL Hgb 10.1 L (13.0-17.0) g/dL Hct 31.1 L (38.0-50.0) % MCV 77.4 L (80.0-98.0) fL MCH 25.1 L (27.0-32.0) pg MCHC 32.5 (31.0-37.0) g/dL RDW Std Deviation 51.9 (28.0-62.0) fl RDW Coeff of Kaylin 18 H (11.0-15.0) % Plt Count 169 (150-400) K/uL MPV 9.10 (7.40-12.00) fL Neut % (Auto) 83.4 H (48.0-80.0) % Lymph % (Auto) 6.2 L (16.0-40.0) % [place] % (Auto) 9.7 (0.0-15.0) % Eos % (Auto) 0.5 (0.0-7.0) % Baso % (Auto) 0.2 (0.0-1.5) % Neut # (Auto) 8.6 H (1.4-5.7) K/uL Lymph # (Auto) 0.6 (0.6-2.4) K/uL [place] # (Auto) 1.0 H (0.0-0.8) K/uL Eos # (Auto) 0.1 (0.0-0.7) K/uL Baso # (Auto) 0.0 (0.0-0.1) K/uL Nucleated RBC % 0.0 /100WBC Nucleated RBCs # 0 K/uL INR 2.45 Sodium 127 L (136-148) mmol/L Potassium 4.1 (3.5-5.1) mmol/L Chloride 94 L (98-107) mmol/L Carbon Dioxide 23.8 (21.0-32.0) mmol/L BUN 16 (7.0-18.0) mg/dL Creatinine 0.9 (0.8-1.3) mg/dL Est Cr Clr Drug Dosing 74.25 mL/min Estimated GFR (MDRD) > 60.0 ml/min Glucose 267 H (74-106) mg/dL POC Glucose (60-110) mg/dL Calcium 8.2 L (8.5-10.1) mg/dL Magnesium 1.2 L (1.5-2.0) mg/dL 04/20/17 Range/Units 06:10 WBC (4.0-11.0) K/uL RBC (4.50-5.90) M/uL Hgb (13.0-17.0) g/dL Hct (38.0-50.0) % MCV (80.0-98.0) fL MCH (27.0-32.0) pg MCHC (31.0-37.0) g/dL RDW Std Deviation (28.0-62.0) fl RDW Coeff of Kaylin (11.0-15.0) % Plt Count (150-400) K/uL MPV (7.40-12.00) fL Neut % (Auto) (48.0-80.0) % Lymph % (Auto) (16.0-40.0) % [place] % (Auto) (0.0-15.0) % Eos % (Auto) (0.0-7.0) % Baso % (Auto) (0.0-1.5) % Neut # (Auto) (1.4-5.7) K/uL Lymph # (Auto) (0.6-2.4) K/uL [place] # (Auto) (0.0-0.8) K/uL Eos # (Auto) (0.0-0.7) K/uL Baso # (Auto) (0.0-0.1) K/uL Nucleated RBC % /100WBC Nucleated RBCs # K/uL INR Sodium (136-148) mmol/L Potassium (3.5-5.1) mmol/L Chloride (98-107) mmol/L Carbon Dioxide (21.0-32.0) mmol/L BUN (7.0-18.0) mg/dL Creatinine (0.8-1.3) mg/dL Est Cr Clr Drug Dosing mL/min Estimated GFR (MDRD) ml/min Glucose (74-106) mg/dL POC Glucose 286 H (60-110) mg/dL Calcium (8.5-10.1) mg/dL Magnesium (1.5-2.0) mg/dL Result Diagrams: 04/20/17 04:55 04/20/17 04:55 *Q Meaningful Use (ADM) - VTE *Q VTE Criteria *Q: - Stroke *Q Stroke Criteria *Q: - AMI *Q AMI Criteria *Q: Problem List Initiated/Reviewed/Updated: Yes Orders Last 24hrs: Active Orders 24 hr Category Date Time Status Blood Glucose Check, Bedside [RC] QIDACANDBED Care 04/20/17 07:30 Active Neuro Check [RC] Q4HR Care 04/20/17 01:06 Active RT Aerosol Therapy [RC] ASDIRECTED Care 04/20/17 01:08 Active Telemetry Monitoring [Cardiac Monitoring] [RC] Q8H Care 04/20/17 00:50 Active [place] [employer] Diet [DIET] Diet 04/20/17 Breakfast Active Ang Head wo Cont [MR] Routine Exams 04/20/17 00:55 Stop Req Ang Head wo Cont [MR] Routine Exams 04/20/17 08:00 Ordered Brain w Cont [MR] Routine Exams 04/20/17 08:00 Ordered MRA Neck Without Contrast [Ang Neck wo Cont] [MR] Exams 04/20/17 08:00 Ordered Routine Albuterol/Ipratropium [Combivent Respimat] Med 04/20/17 02:56 Active 0 gm INH Q6H PRN Albuterol/Ipratropium [DuoNeb 3.0-0.5 MG/3 ML] Med 04/20/17 01:08 Active 3 ml NEB Q6HRRT Diltiazem [Cardizem CD] Med 04/20/17 09:00 Active 360 mg PO DAILY Ferrous Sulfate Med 04/20/17 08:00 Active 325 mg PO BIDMEALS Furosemide [Lasix] Med 04/20/17 09:00 Active 20 mg PO DAILY Glimepiride Med 04/20/17 09:00 Active 4 mg PO DAILY Insulin Glarg,Human.Rec.Analog [LantUS Solostar] Med 04/20/17 09:00 Active 10 units SUBCUT BIDAC Levofloxacin/Dextrose 5%-Water [Levaquin in D5W 750 MG/ Med 04/21/17 00:30 Active 150 ML] 750 mg Premix Bag 1 bag IV Q24H Losartan [Cozaar] Med 04/20/17 09:00 Active 25 mg PO DAILY Omeprazole Med 04/20/17 09:00 Active 40 mg PO DAILY Sodium Chloride 0.9% [Normal Saline] 1,000 ml Med 04/20/17 00:30 Active IV ASDIRECTED Sodium Chloride 0.9% [Normal Saline] 1,000 ml Med 04/20/17 01:15 Active IV ASDIRECTED Spironolactone [Aldactone] Med 04/20/17 09:00 Active 25 mg PO DAILY Tiotropium [Spiriva HandiHaler] Med 04/20/17 09:00 Active 18 mcg INH DAILY Warfarin [Coumadin] Med 04/20/17 16:00 Active 5 mg PO 1600 Medication Orders Albuterol/Ipratropium (Duoneb 3.0-0.5 Mg/3 Ml) 3 ml NEB Q6HRRT [facility] Last Admin: 04/20/17 06:03 Dose: 3 ml Admin: 04/20/17 01:43 Dose: 3 ml Albuterol/Ipratropium (Combivent Respimat) 0 gm INH Q6H PRN PRN Reason: Shortness of Breath Diltiazem HCl (Cardizem Cd) 360 mg PO DAILY [facility] Ferrous Sulfate (Ferrous Sulfate) 325 mg PO BIDMEALS [facility] Furosemide (Lasix) 20 mg PO DAILY [facility] Glimepiride (Glimepiride) 4 mg PO DAILY [facility] Sodium Chloride (Normal Saline) 1,000 mls @ 50 mls/hr IV ASDIRECTED [facility] Last Admin: 04/20/17 00:30 Dose: 50 mls/hr Levofloxacin/Dextrose 750 mg/ (Premix) 150 mls @ 100 mls/hr IV Q24H [facility] Sodium Chloride (Normal Saline) 1,000 mls @ 50 mls/hr IV ASDIRECTED [facility] Insulin Glargine (Lantus Solostar) 10 units SUBCUT BIDAC [facility] Losartan Potassium (Cozaar) 25 mg PO DAILY [facility] Omeprazole (Omeprazole) 40 mg PO DAILY [facility] Sodium Chloride (Saline Flush) 10 ml FLUSH ASDIRECTED PRN PRN Reason: Keep Vein Open Last Admin: 04/20/17 00:31 Dose: 10 ml Sodium Chloride (Saline Flush) 2.5 ml FLUSH ASDIRECTED PRN PRN Reason: Keep Vein Open Last Admin: 04/20/17 00:31 Dose: 2.5 ml Admin: 04/20/17 00:30 Dose: 2.5 ml Spironolactone (Aldactone) 25 mg PO DAILY [facility] Tiotropium [place] (Spiriva Handihaler) 18 mcg INH DAILY [facility] Last Admin: 04/20/17 08:35 Dose: 1 puff Warfarin Sodium (Coumadin) 5 mg PO 1600 [facility] Assessment/Plan Comment:: This is a 77-year-old male presenting with increased confusion which is acute on chronic in nature, he has a significant past medical history of COPD, type 2 diabetes, atrial fibrillation/atrial flutter. Assessment/plan 1, shortness of breath, leukocytosis likely secondary to acute exacerbation of COPD symptoms along with a bibasilar pneumonia #2. Acute on chronic confusion with ataxia differential diagnosis includes age onset dementia versus ischemic event versus hyperglycemia versus hypoxemia 3. Type 2 diabetes controlled with insulin therapy as well as oral hypoglycemic medication 4. Atrial fibrillation/atrial flutter controlled with rate control medication along with chronic Coumadin therapy -Patient to be placed on Levaquin, sputum cultures as well as blood cultures drawn -For COPD, patient is on Solu-Medrol, duo nebs, restart of home inhalers -For the patient's type 2 diabetes high dose insulin sliding scale along with Lantus in the evening -Patient is rate controlled with Cardizem Inpatient stay anticipated length of stay greater than 2 midnights.
[2017-04-20] MEDS: Ferrous Sulfate 325 MG Tab PO SCH ×2 (09:11→17:46)
[2017-04-20] MEDS: Glimepiride 4 MG Tab PO SCH (09:11)
[2017-04-20] MEDS: Insulin Glargine,Human Rec. Analog 100 Units/ML 3 ML Pen SUBCUT SCH ×2 (09:20→10:49)
[2017-04-20] MEDS: Omeprazole 20 MG Cap.CR PO SCH (09:30)
--- NOTE | 2017-04-20 09:53 | CT ---
EXAM DATE: 04/20/17 PATIENT'S AGE: 77 Patient: BAILEY VALENTIN Facility: [place], [place] Site . Site : 1940 Study: CT Head [id number]/13/2018 11:38:26 PM Ordering Physician: Cm Serrano Final Report: INDICATION: AMS, general weakness TECHNIQUE: CT Head without contrast. COMPARISON: None. FINDINGS: There is no sign of intracranial hemorrhage or mass effect. Diffuse cerebral atrophy. Nonspecific low-attenuation along the periventricular white matter, most likely related to chronic microvascular disease. Remote infarct within the left basal ganglia. The meehan-white differentiation is preserved. No abnormal intra-axial or extra-axial fluid collection. No acute disease of the visualized paranasal sinuses and mastoid air cells. No fracture evident. No scalp hematoma/ laceration. IMPRESSION: No acute intracranial process. Dictated by: Jered Wolfe MD @ 04/19/2017 23:47:42 (Electronic Signature) Report Signed by Proxy. [facility]
--- NOTE | 2017-04-20 09:54 | CR ---
EXAM DATE: 04/20/17 PATIENT'S AGE: 77 Patient: BAILEY VALENTIN Facility: [place], [place] Site . Site : 1940 Study: XRay Chest [id number]/13/2018 11:39:16 PM Ordering Physician: Cm Serrano Final Report: Indication: Altered mental status, general weakness Technique: Chest 1 view Comparison: March 11, 2017. Findings/Impression: Stable cardiac size. New patchy opacity at both lung bases may represent atelectasis or infection. No sign of pleural effusion. No pneumothorax. No significant osseous findings. Dictated by Risa Piper MD @ Apr 19 2017 11:47PM (Electronic Signature) Report Signed by Proxy. [facility]
[2017-04-20] MEDS ORDERED: Insulin Aspart 100 Units/ML 3 ML Pen SUBCUT SCH (10:04)
[2017-04-20] MEDS ORDERED: Magnesium Sulfate/Water 4 GM in Premix Bag 1 BAG IV ONE (10:27)
[2017-04-20] MEDS: Diltiazem 180 MG Cap.CD PO SCH (10:46)
[2017-04-20] MEDS: Insulin Aspart 100 Units/ML 3 ML Pen SUBCUT SCH ×3 (12:31→17:49)
--- NOTE | 2017-04-20 13:00 | MR ---
EXAMINATION: MR of the head without contrast, MRA of the head, and MRA of the neck. TECHNIQUE: Multiplanar and multisequence imaging of the head without intravenous contrast. Diffusion weighted sequences were performed. [id number] imaging obtained through the head and neck with MIP reconstructions. Contrast was not administered. Moderate motion artifact is noted on the time-of-fli ght sequences. HISTORY: Confusion. FINDINGS: The cerebral hemispheres and deep nuclei are without hemorrhage, mass, edema or atrophy. Small T2 FLA IR hyperintensities in the white matter likely small areas of chronic ischemia. No evidence for restr icted diffusion. No extraaxial collections or hemorrhage. The ventricular system is of normal size and configuration without hydrocephalus. The brainstem and cerebellum are without hemorrhage, mass, edema, gliosis or atrophy. The carotid and basilar artery flow voids are intact. Venous sinuses are patent. Trace fluid noted within the right mastoid air cells. No internal auditory canal or cerebellopontine angle masses. The paranasal sinuses are clear. The craniocervical juncti on is unremarkable. MRA head: The distal internal carotid arteries appear normal. Vertebral basilar system is normal. Lik nacho origin of the left [employer]. The right posterior cerebral artery appears normal. Motion obscures fine detail within the otherwise normal middle and anterior cerebral arteries. Anterior communicatin g artery is normal. No definite aneurysm identified. MRA neck: Three-vessel origin on aortic arch is noted. The lower common carotid, internal carotid kiet tebral arteries are not well characterized due to motion. Vertebral arteries appear codominant. IMPRESSION: 1. Moderate small vessel ischemic changes. 2. No evidence of an acute infarct. 3. Intra and extra cranial arterial circulation is not adequately visualized secondary to motion keys kiet no gross abnormality identified.
[2017-04-20] MEDS: Losartan 50 MG Tab PO SCH (17:44)
[2017-04-20] MEDS: Spironolactone 25 MG Tab PO SCH (17:44)
[2017-04-20] MEDS: Furosemide 20 MG Tab PO SCH (17:45)
[2017-04-20] MEDS: Warfarin 5 MG Tab PO SCH (17:46)
[2017-04-20] MEDS ORDERED: Insulin Glargine,Human Rec. Analog 100 Units/ML 3 ML Pen SUBCUT SCH (21:00)
[2017-04-21] MEDS ORDERED: Levofloxacin/Dextrose 5%-Water 750 MG in Premix Bag 1 BAG IV SCH (00:30)
[2017-04-21] MEDS: Albuterol/Ipratropium 3.0-0.5 MG/3 ML Neb Soln NEB SCH ×3 (05:40→18:21)
[2017-04-21 05:56] LABS: CHLORIDE,CL 99 mmol/L (98-107); SODIUM,NA 132 mmol/L (136-148)
[2017-04-21] MEDS: Insulin Aspart 100 Units/ML 3 ML Pen SUBCUT SCH ×3 (07:08→17:25)
[2017-04-21] MEDS ORDERED: Polyethylene Glycol 3350 Powder 17 GM Packet PO SCH (09:00)
[2017-04-21] MEDS: Tiotropium Inhaler 18 MCG Inhalation Powder Cap Kit of 5 INH SCH (09:06)
[2017-04-21] MEDS: Losartan 50 MG Tab PO SCH (10:19)
[2017-04-21] MEDS: Spironolactone 25 MG Tab PO SCH (10:19)
[2017-04-21] MEDS: Furosemide 20 MG Tab PO SCH (10:25)
[2017-04-21] MEDS: Diltiazem 180 MG Cap.CD PO SCH (10:25)
[2017-04-21] MEDS: Omeprazole 20 MG Cap.CR PO SCH (10:26)
[2017-04-21] MEDS: Glimepiride 4 MG Tab PO SCH (10:26)
[2017-04-21] MEDS: Ferrous Sulfate 325 MG Tab PO SCH ×2 (10:26→17:21)
[2017-04-21] MEDS: Warfarin 5 MG Tab PO SCH (17:21)
--- NOTE | 2017-04-21 21:08 | PCM.DCSUM1 ---
Discharge Summary - Hospital Course HPI Initial Comments: Discharge Summary Date of admission: 04/20/17 Date of discharge: 04/21/17 Admitting diagnosis: #1. Shortness of breath, leukocytosis secondary to acute exacerbation of COPD along with bibasilar pneumonia #2. Acute on chronic confusion with ataxia differential diagnosis includes age onset dementia versus ischemic event versus hyperglycemia versus hypoxemia #3. Type 2 diabetes controlled with insulin therapy and oral hyperglycemic medication #4. Atrial fibrillation/atrial flutter controlled with rate control medication along with Coumadin therapy #5. Discharge diagnoses: #1. COPD exacerbation with bibasilar pneumonia now resolving patient is stable with decreased leukocytosis. #2. Patient is now baseline for his acute confusion likely etiology was metabolic in nature #3. #4. #5. Consultations: None Procedures: None Hospitalization course: Patient was admitted on 04/20/2017 secondary to his acute confusion and COPD exacerbation and bilateral pneumonia, patient was started on Levaquin for his pneumonia, patient was also treated with Solu- Medrol and duo nebs and oxygen support for his COPD exacerbation. A MRI was done of the head and the neck and it did not show any ischemic events. Patient did have an abnormal sodium level along with a elevated glucose level and taking into account the patient's pneumonia bilateral that was seen on imaging it is likely the patient had metabolic encephalopathy secondary to these etiologies and as we began to correct them patient very quickly came back to baseline and was told longer confused. Disposition on discharge: Home Condition on discharge: Stable - Discharge Data Discharge Date: 04/21/17 Discharge Disposition: Home, Self-Care 01 Condition: Fair - Discharge Plan Prescriptions/Med Rec: Levofloxacin [Levaquin] 750 mg PO DAILY 7 Days #7 tab Home Medications: Home Meds Albuterol [Proventil HFA] 2 puff INH Q4HR PRN 04/20/17 [History] Albuterol [Proventil Neb Soln] 0.63 mg NEB Q6HR PRN 04/20/17 [History] Diltiazem HCl [Diltiazem 24Hr Cd] 360 mg PO DAILY 04/20/17 [History] Docusate Sodium [Colace] 250 mg PO DAILY 04/20/17 [History] Ferrous Sulfate 325 mg PO BID 04/20/17 [History] Furosemide [Lasix] 20 mg PO DAILY 04/20/17 [History] Glimepiride 4 mg PO DAILY 04/20/17 [History] Ipratropium/Albuterol Sulfate [Combivent Respimat Inhal [place]] 1 puff IH Q6H PRN 04/20/17 [History] Losartan [Cozaar] 25 mg PO DAILY 04/20/17 [History] Mometasone/Formoterol [Dulera 200 MCG/5 MCG] 1 puff INH Q6HR PRN 04/20/17 [ History] Omeprazole 40 mg PO DAILY 04/20/17 [History] Spironolactone [Aldactone] 25 mg PO DAILY 04/20/17 [History] Tiotropium [Spiriva HandiHaler] 1 puff INH DAILY 04/20/17 [History] Warfarin [Coumadin] 5 mg PO DAILY 04/20/17 [History] metFORMIN HCl [Metformin HCl] 1,000 mg PO BID 04/20/17 [History] Levofloxacin [Levaquin] 750 mg PO DAILY 7 Days #7 tab 04/21/17 [Rx] Patient Handouts: Confusion, Levofloxacin tablets, Community-Acquired Pneumonia , Adult, [id number] Referrals: [facility] [Outside] (Please call your primary care provider to schedule a one week post-hospital follow-up appointment.) - Discharge Summary/Plan Comment DC Time >30 min.: No - Patient Data Vitals - Most Recent: Last Vital Signs Temp 37.1 C 04/21/17 16:00 Pulse 66 04/21/17 16:00 Resp 20 04/21/17 16:00 BP 113/61 04/21/17 16:00 Pulse Ox 96 04/21/17 16:00 Weight - Most Recent: 85.321 kg I&O - Last 24 hours: Intake & Output 04/21/17 04/21/17 04/21/17 06:59 14:59 22:59 Intake Total 3397 839 6114 Output Total 540 1050 Balance 823 664 107 Lab Results - Last 24 hrs: Laboratory Results - last 24 hr 04/21/17 04/21/17 04/21/17 Range/Units 05:06 05:06 05:06 WBC 7.37 (4.0-11.0) K/uL RBC 3.85 L (4.50-5.90) M/uL Hgb 9.6 L (13.0-17.0) g/dL Hct 30.1 L (38.0-50.0) % MCV 78.2 L (80.0-98.0) fL MCH 24.9 L (27.0-32.0) pg MCHC 31.9 (31.0-37.0) g/dL RDW Std Deviation 52.9 (28.0-62.0) fl RDW Coeff of Kaylin 18 H (11.0-15.0) % Plt Count 191 (150-400) K/uL MPV 9.40 (7.40-12.00) fL Neut % (Auto) 80.2 H (48.0-80.0) % Lymph % (Auto) 8.7 L (16.0-40.0) % Crawford % (Auto) 9.5 (0.0-15.0) % Eos % (Auto) 1.6 (0.0-7.0) % Baso % (Auto) 0.0 (0.0-1.5) % Neut # (Auto) 5.9 H (1.4-5.7) K/uL Lymph # (Auto) 0.6 (0.6-2.4) K/uL Crawford # (Auto) 0.7 (0.0-0.8) K/uL Eos # (Auto) 0.1 (0.0-0.7) K/uL Baso # (Auto) 0.0 (0.0-0.1) K/uL Nucleated RBC % 0.0 /100WBC Nucleated RBCs # 0 K/uL INR 2.25 Sodium 132 L (136-148) mmol/L Potassium 4.8 (3.5-5.1) mmol/L Chloride 99 (98-107) mmol/L Carbon Dioxide 27.6 (21.0-32.0) mmol/L BUN 14 (7.0-18.0) mg/dL Creatinine 0.8 (0.8-1.3) mg/dL Est Cr Clr Drug Dosing 83.53 mL/min Estimated GFR (MDRD) > 60.0 ml/min Glucose 240 H (74-106) mg/dL POC Glucose (60-110) mg/dL Calcium 8.3 L (8.5-10.1) mg/dL Magnesium 1.6 (1.5-2.0) mg/dL 04/21/17 04/21/17 04/21/17 Range/Units 06:20 11:53 11:56 WBC (4.0-11.0) K/uL RBC (4.50-5.90) M/uL Hgb (13.0-17.0) g/dL Hct (38.0-50.0) % MCV (80.0-98.0) fL MCH (27.0-32.0) pg MCHC (31.0-37.0) g/dL RDW Std Deviation (28.0-62.0) fl RDW Coeff of Kaylin (11.0-15.0) % Plt Count (150-400) K/uL MPV (7.40-12.00) fL Neut % (Auto) (48.0-80.0) % Lymph % (Auto) (16.0-40.0) % Crawford % (Auto) (0.0-15.0) % Eos % (Auto) (0.0-7.0) % Baso % (Auto) (0.0-1.5) % Neut # (Auto) (1.4-5.7) K/uL Lymph # (Auto) (0.6-2.4) K/uL Crawford # (Auto) (0.0-0.8) K/uL Eos # (Auto) (0.0-0.7) K/uL Baso # (Auto) (0.0-0.1) K/uL Nucleated RBC % /100WBC Nucleated RBCs # K/uL INR Sodium (136-148) mmol/L Potassium (3.5-5.1) mmol/L Chloride (98-107) mmol/L Carbon Dioxide (21.0-32.0) mmol/L BUN (7.0-18.0) mg/dL Creatinine (0.8-1.3) mg/dL Est Cr Clr Drug Dosing mL/min Estimated GFR (MDRD) ml/min Glucose (74-106) mg/dL POC Glucose 231 H 363 H 255 H (60-110) mg/dL Calcium (8.5-10.1) mg/dL Magnesium (1.5-2.0) mg/dL 03/15/18 Range/Units 16:33 WBC (4.0-11.0) K/uL RBC (4.50-5.90) M/uL Hgb (13.0-17.0) g/dL Hct (38.0-50.0) % MCV (80.0-98.0) fL MCH (27.0-32.0) pg MCHC (31.0-37.0) g/dL RDW Std Deviation (28.0-62.0) fl RDW Coeff of Kaylin (11.0-15.0) % Plt Count (150-400) K/uL MPV (7.40-12.00) fL Neut % (Auto) (48.0-80.0) % Lymph % (Auto) (16.0-40.0) % Crawford % (Auto) (0.0-15.0) % Eos % (Auto) (0.0-7.0) % Baso % (Auto) (0.0-1.5) % Neut # (Auto) (1.4-5.7) K/uL Lymph # (Auto) (0.6-2.4) K/uL Crawford # (Auto) (0.0-0.8) K/uL Eos # (Auto) (0.0-0.7) K/uL Baso # (Auto) (0.0-0.1) K/uL Nucleated RBC % /100WBC Nucleated RBCs # K/uL INR Sodium (136-148) mmol/L Potassium (3.5-5.1) mmol/L Chloride (98-107) mmol/L Carbon Dioxide (21.0-32.0) mmol/L BUN (7.0-18.0) mg/dL Creatinine (0.8-1.3) mg/dL Est Cr Clr Drug Dosing mL/min Estimated GFR (MDRD) ml/min Glucose (74-106) mg/dL POC Glucose 144 H (60-110) mg/dL Calcium (8.5-10.1) mg/dL Magnesium (1.5-2.0) mg/dL GLORIA Results - Last 24 hrs: Microbiology 04/20/17 00:28 Aerobic Blood Culture - Preliminary Blood - Venous - Lab Draw NO GROWTH AFTER 1 DAY Anaerobic Blood Culture - Preliminary NO GROWTH AFTER 1 DAY 04/20/17 00:23 Aerobic Blood Culture - Preliminary Blood - Venous NO GROWTH AFTER 1 DAY Anaerobic Blood Culture - Preliminary NO GROWTH AFTER 1 DAY Med Orders - Current: Current Medications Discontinued Medications Albuterol/Ipratropium (Duoneb 3.0-0.5 Mg/3 Ml) 3 ml NEB Q6HRRT [facility] Last Admin: 04/21/17 18:21 Dose: 3 ml Albuterol/Ipratropium (Combivent Respimat) 0 gm INH Q6H PRN PRN Reason: Shortness of Breath Diltiazem HCl (Cardizem Cd) 360 mg PO DAILY [facility] Last Admin: 04/21/17 10:25 Dose: 360 mg Ferrous Sulfate (Ferrous Sulfate) 325 mg PO BIDMEALS [facility] Last Admin: 04/21/17 17:21 Dose: 325 mg Furosemide (Lasix) 20 mg PO DAILY [facility] Last Admin: 04/21/17 10:25 Dose: 20 mg Glimepiride (Glimepiride) 4 mg PO DAILY [facility] Last Admin: 04/21/17 10:26 Dose: 4 mg Levofloxacin/Dextrose 750 mg/ (Premix) 150 mls @ 100 mls/hr IV ONETIME ONE Stop: 04/20/17 01:35 Last Admin: 04/20/17 00:31 Dose: 100 mls/hr Sodium Chloride (Normal Saline) 1,000 mls @ 50 mls/hr IV ASDIRECTED [facility] Last Admin: 04/20/17 22:22 Dose: 50 mls/hr Levofloxacin/Dextrose 750 mg/ (Premix) 150 mls @ 100 mls/hr IV Q24H [facility] Last Admin: 04/20/17 23:43 Dose: 100 mls/hr Sodium Chloride (Normal Saline) 1,000 mls @ 50 mls/hr IV ASDIRECTED [facility] Magnesium Sulfate 4 gm/ Premix 100 mls @ 25 mls/hr IV ONETIME ONE Stop: 04/20/17 14:26 Last Admin: 04/20/17 12:15 Dose: 25 mls/hr Insulin Aspart (Novolog) 0 unit SUBCUT ACBREAKFASTANDBED [facility] PRN Reason: Protocol Last Admin: 04/20/17 10:14 Dose: Not Given Insulin Aspart (Novolog) 0 unit SUBCUT ACBED [facility] PRN Reason: Protocol Last Admin: 04/20/17 12:32 Dose: 6 units Insulin Aspart (Novolog) 0 unit SUBCUT TIDAC [facility] PRN Reason: Protocol Last Admin: 04/21/17 17:25 Dose: Not Given Insulin Glargine (Lantus Solostar) 15 units SUBCUT BEDTIME ONE Stop: 04/20/17 00:10 Last Admin: 04/20/17 01:41 Dose: 15 units Insulin Glargine (Lantus Solostar) 10 units SUBCUT BIDAC [facility] Last Admin: 04/20/17 10:49 Dose: Not Given Insulin Glargine (Lantus Solostar) 15 units SUBCUT BEDTIME [facility] Last Admin: 04/20/17 20:51 Dose: 15 unit Losartan Potassium (Cozaar) 25 mg PO DAILY [facility] Last Admin: 04/21/17 10:19 Dose: Not Given Omeprazole (Omeprazole) 40 mg PO DAILY [facility] Last Admin: 04/21/17 10:26 Dose: 40 mg Polyethylene Glycol (Miralax) 17 gm PO DAILY [facility] Last Admin: 04/21/17 10:26 Dose: 17 gm Sodium Chloride (Saline Flush) 10 ml FLUSH ASDIRECTED PRN PRN Reason: Keep Vein Open Last Admin: 04/20/17 00:31 Dose: 10 ml Sodium Chloride (Saline Flush) 2.5 ml FLUSH ASDIRECTED PRN PRN Reason: Keep Vein Open Last Admin: 04/20/17 00:31 Dose: 2.5 ml Spironolactone (Aldactone) 25 mg PO DAILY [facility] Last Admin: 04/21/17 10:19 Dose: Not Given Tiotropium [place] (Spiriva Handihaler) 18 mcg INH DAILY [facility] Last Admin: 04/21/17 09:06 Dose: 1 puff Warfarin Sodium (Coumadin) 5 mg PO 1600 [facility] Last Admin: 04/21/17 17:21 Dose: 5 mg *Q Meaningful Use (DIS) - VTE *Q VTE Criteria *Q: - Stroke *Q Stroke Criteria *Q: - AMI *Q AMI Criteria *Q:
== END 2017-04-21 19:56 | disposition home or self-care (01) | DRG 190 ==
LOC: MW.ED 22:49 → MW.MS 04-20 00:10
PROVIDERS: ADMIT Family Medicine; ATTEND Family Medicine
DX: J44.0 Chronic obstructive pulmonary disease with (acute) lower respiratory infection (principal); J18.9 Pneumonia, unspecified organism; G93.41 Metabolic encephalopathy; E11.65 Type 2 diabetes mellitus with hyperglycemia; I48.92 Unspecified atrial flutter; J44.1 Chronic obstructive pulmonary disease with (acute) exacerbation; J44.9 Chronic obstructive pulmonary disease, unspecified; R26.0 Ataxic gait; I48.91 Unspecified atrial fibrillation; I10 Essential (primary) hypertension; Z95.4 Presence of other heart-valve replacement; Z79.01 Long term (current) use of anticoagulants; Z79.84 Long term (current) use of oral hypoglycemic drugs; Z79.899 Other long term (current) drug therapy
CPT/HCPCS: 36415; 70450; 70450-26; 70544; 70544-26; 70547; 70547-26; 70551; 70551-26; 71045; 71045-26; 80048; 80053; 81001; 82009; 82962; 83036; 83605; 83735; 84443; 84484; 85025; 85610; 87040; 93005; 94640; 94664; 96374; 99285; 99285-25; A9270-GY; J1815-GY; J1956; J3475; J7040

== ENCOUNTER 2018-03-12 14:57 | Emergency (ER) | payer MEDICARE ==
--- NOTE | 2018-03-12 15:06 | EDM.PDOC ---
ED HPI GENERAL MEDICAL PROBLEM - General Chief Complaint: Respiratory Problem Stated Complaint: COUGH Time Seen by Provider: 03/12/18 15:05 Source of Information: Reports: Patient History Limitations: Reports: No Limitations - History of Present Illness INITIAL COMMENTS - FREE TEXT/NARRATIVE: HISTORY AND PHYSICAL: History of present illness: Patient is a 78-year-old male who presents to the ED today with his daughter with concerns of a week long cough. Patient does have a history of COPD requiring constant at home oxygen. He is currently supposed to be on 3 L at home but over the past couple days has bumped it up to 4 due to the cough. Patient states he has noticed an increase in the amount of sputum production as well as a change in the color from yellow to now greenish. He states he did initially have a sore throat but this has resolved. He states he does have a history of pneumonia in the past and has had COPD exasperation's before. Patient nor his daughter specifically know what medications he is taking. Patient denies pain with inspiration, fever, chills, malaise, difficulties breathing, shortness of breath, chest pain, palpitations, or any other respiratory or cardiovascular issues. Patient denies any other GI or symptoms. Patient does have a history of atrial fib/flutter, COPD, HTN, Type II diabetes controlled with oral medications, h/o pneumonia. Review of systems: As per history of present illness and below otherwise all systems reviewed and negative. Past medical history: As per history of present illness and as reviewed below otherwise noncontributory. Surgical history: As per history of present illness and as reviewed below otherwise noncontributory. Social history: See social history for further information Family history: As per history of present illness and as reviewed below otherwise noncontributory. Physical exam: General: Well-developed and well-nourished 78-year-old male. Alert and oriented. Nontoxic appearing and in no acute distress. HEENT: Atraumatic, normocephalic, pupils equal and reactive bilaterally, negative for conjunctival pallor or scleral icterus, mucous membranes moist, TMs normal bilaterally, throat clear, neck supple, nontender, trachea midline. No drooling or trismus noted. No meningeal signs. No hot potato voice noted. Lungs: There is high-pitched wheezing in both left and right bases bilaterally with out rhonchi or crackles, breath sounds equal bilaterally greatly diminished , chest nontender. Patient is breathing comfortably on 3 L of oxygen and is not using accessory muscles to breath. Heart: Heart exam is limited due to wheezing in the lungs Abdomen: Soft, nondistended, nontender. Negative for masses or hepatosplenomegaly. Negative for costovertebral tenderness. Pelvis: Stable nontender. Genitourinary: Deferred. Rectal: Deferred. Skin: Intact, warm, dry. No lesions or rashes noted. Extremities: Atraumatic, negative for cords or calf pain. Neurovascular unremarkable. Neuro: Awake, alert, oriented. Cranial nerves II through XII unremarkable. Cerebellum unremarkable. Motor and sensory unremarkable throughout. Exam nonfocal. Notes: Patient has had a change in sputum production as well as an increase in the amount of production. Chest x-ray does show hyperinflation of the lungs but no acute cardiopulmonary process. Will treat patient for COPD exacerbation. Diagnostics: CBC, BMP, CXR Therapeutics: IV Solumedrol, Duo Neb Prescription: Prednisone Azithromycin Impression: COPD exacerbation Anemia Elevated sugar level Plan: 1. Take medications as prescribed. Use your current inhalers as prescribed and continue your current at home oxygen use. 2. Follow up with your primary care provider for COPD, anemia, and elevated sugar level. 3. Return to the ED as needed and as discussed. Definitive disposition and diagnosis as appropriate pending reevaluation and review of above. - Related Data Allergies Allergy/AdvReac Type Severity Reaction Status Date / Time No Known Allergies Allergy Verified 04/20/17 02:44 Home Meds: Home Meds Albuterol [Proventil HFA] 2 puff INH Q4HR PRN 04/20/17 [History] Albuterol [Proventil Neb Soln] 0.63 mg NEB Q6HR PRN 04/20/17 [History] Docusate Sodium [Colace] 250 mg PO DAILY 04/20/17 [History] Ferrous Sulfate 325 mg PO BID 04/20/17 [History] Furosemide [Lasix] 20 mg PO DAILY 04/20/17 [History] Glimepiride 4 mg PO DAILY 04/20/17 [History] Ipratropium/Albuterol Sulfate [Combivent Respimat 20-100 Mcg] 1 puff IH Q6H PRN 04/20/17 [History] Losartan [Cozaar] 25 mg PO DAILY 04/20/17 [History] Mometasone/Formoterol [Dulera 200 MCG/5 MCG] 1 puff INH Q6HR PRN 04/20/17 [ History] Omeprazole 40 mg PO DAILY 04/20/17 [History] Spironolactone [Aldactone] 25 mg PO DAILY 04/20/17 [History] Tiotropium [Spiriva HandiHaler] 1 puff INH DAILY 04/20/17 [History] Warfarin [Coumadin] 5 mg PO DAILY 04/20/17 [History] dilTIAZem HCl [Diltiazem 24Hr Cd] 360 mg PO DAILY 04/20/17 [History] metFORMIN HCl [Metformin HCl] 1,000 mg PO BID 04/20/17 [History] levoFLOXacin [Levaquin] 750 mg PO DAILY 7 Days #7 tab 04/21/17 [Rx] Past Medical History HEENT History: Reports: Hard of Hearing Cardiovascular History: Reports: Afib, Heart Valve Replacement, Hypertension Respiratory History: Reports: COPD Gastrointestinal History: Reports: GERD Musculoskeletal History: Reports: None Neurological History: Reports: None Psychiatric History: Reports: None Endocrine/Metabolic History: Reports: Diabetes, Type II Hematologic History: Reports: None Immunologic History: Reports: None Oncologic (Cancer) History: Reports: None Dermatologic History: Reports: None - Infectious Disease History Infectious Disease History: Reports: None - Past Surgical History Head Surgeries/Procedures: Reports: None HEENT Surgical History: Reports: Cataract Surgery Cardiovascular Surgical History: Reports: Valve Replacement Musculoskeletal Surgical History: Reports: Shoulder Surgery Social & Family History - Family History Family Medical History: Noncontributory Endocrine/Metabolic: Reports: Diabetes, type II - Caffeine Use Caffeine Use: Reports: Coffee ED ROS GENERAL - Review of Systems Review Of Systems: ROS reveals no pertinent complaints other than HPI. ED EXAM, GENERAL - Physical Exam Exam: See Below (See dictation) Course - Vital Signs Last Recorded V/S: Last Vital Signs Temp 95.2 F L 03/12/18 15:03 Pulse 94 03/12/18 16:38 Resp 20 03/12/18 15:03 BP 115/64 03/12/18 16:38 Pulse Ox 96 03/12/18 16:38 - Orders/Labs/Meds Labs: Laboratory Tests 03/12/18 03/12/18 Range/Units 15:29 15:29 WBC 10.69 (4.0-11.0) K/uL RBC 4.92 (4.50-5.90) M/uL Hgb 12.6 L (13.0-17.0) g/dL Hct 39.1 (38.0-50.0) % MCV 79.5 L (80.0-98.0) fL MCH 25.6 L (27.0-32.0) pg MCHC 32.2 (31.0-37.0) g/dL RDW Std Deviation 48.0 (28.0-62.0) fl RDW Coeff of Kaylin 17 H (11.0-15.0) % Plt Count 252 (150-400) K/uL MPV 9.50 (7.40-12.00) fL Neut % (Auto) 75.5 (48.0-80.0) % Lymph % (Auto) 11.0 L (16.0-40.0) % [place] % (Auto) 6.4 (0.0-15.0) % Eos % (Auto) 6.6 (0.0-7.0) % Baso % (Auto) 0.5 (0.0-1.5) % Neut # (Auto) 8.1 H (1.4-5.7) K/uL Lymph # (Auto) 1.2 (0.6-2.4) K/uL [place] # (Auto) 0.7 (0.0-0.8) K/uL Eos # (Auto) 0.7 (0.0-0.7) K/uL Baso # (Auto) 0.1 (0.0-0.1) K/uL Nucleated RBC % 0.0 /100WBC Nucleated RBCs # 0 K/uL Sodium 135 L (136-148) mmol/L Potassium 4.5 (3.5-5.1) mmol/L Chloride 98 (98-107) mmol/L Carbon Dioxide 26.9 (21.0-32.0) mmol/L BUN 16 (7.0-18.0) mg/dL Creatinine 1.1 (0.8-1.3) mg/dL Est Cr Clr Drug Dosing 66.03 mL/min Estimated GFR (MDRD) > 60.0 ml/min Glucose 338 H (74-106) mg/dL Calcium 9.8 (8.5-10.1) mg/dL Meds: Medications Discontinued Medications Generic Name Dose Route Start Last Admin Trade Name Carlota PRN Reason Stop Dose Admin Albuterol/Ipratropium 3 ml 03/12/18 15:19 03/12/18 15:29 Duoneb 3.0-0.5 Mg/3 Ml NEB 03/12/18 15:20 3 ml ONETIME ONE Administration Methylprednisolone Sodium Succinate 125 mg 03/12/18 15:21 03/12/18 15:34 Solu-Medrol IVPUSH 03/12/18 15:22 125 mg ONETIME ONE Administration Departure - Departure Time of Disposition: 16:19 Disposition: Home, Self-Care 01 Condition: Good Clinical Impression: COPD exacerbation, High blood sugar Anemia Qualifiers: Anemia type: unspecified type Qualified Code(s): D64.9 - Anemia, unspecified - Discharge Information Instructions: Chronic Obstructive Pulmonary Disease, [id number] Referrals: PCP,Unknown [Primary Care Provider] - Forms: ED Department Discharge Additional Instructions: The following information is given to patients seen in the emergency department who are being discharged to home. This information is to outline your options for follow-up care. We provide all patients seen in our emergency department with a follow-up referral. The need for follow-up, as well as the timing and circumstances, are variable depending upon the specifics of your emergency department visit. If you don't have a primary care physician on staff, we will provide you with a referral. We always advise you to contact your personal physician following an emergency department visit to inform them of the circumstance of the visit and for follow-up with them and/or the need for any referrals to a consulting specialist. The emergency department will also refer you to a specialist when appropriate. This referral assures that you have the opportunity for follow-up care with a specialist. All of these measure are taken in an effort to provide you with optimal care, which includes your follow-up. Under all circumstances we always encourage you to contact your private physician who remains a resource for coordinating your care. When calling for follow-up care, please make the office aware that this follow-up is from your recent emergency room visit. If for any reason you are refused follow-up, please contact the [facility] Emergency Department at and asked to speak to the emergency department charge nurse. [facility] [address] [place] [address] [facility] [address] [place] [id number] 1. Take medications as prescribed. You can pick them up in the [facility] machine. Use your current inhalers as prescribed and continue your current at home oxygen use. 2. Follow up with your primary care provider for COPD and anemia. 3. Return to the ED as needed and as discussed.
[2018-03-12] MEDS ORDERED: Albuterol/Ipratropium 3.0-0.5 MG/3 ML Neb Soln NEB ONE (15:19)
[2018-03-12] MEDS ORDERED: methylPREDNISolone Sodium Succinate 125 MG/2 ML SDV IVPUSH ONE (15:21)
[2018-03-12 15:52] LABS: CHLORIDE,CL 98 mmol/L (98-107); SODIUM,NA 135 mmol/L (136-148)
--- NOTE | 2018-03-12 16:13 | CR ---
Indication: Pain. Shortness of breath. Technique: PA and lateral views the chest were obtained. Comparison: None Findings: On the PA view, the costophrenic angles are not included on the study. Heart is normal in size. Median sternotomy wires are identified. The lungs are hyperinflated. No infiltrate, pleural effusion, or pneumothorax is identified. Impression: No acute cardiopulmonary process. Dictated by Larissa Ibarra MD @ Mar 12 2018 4:10PM Signed by Dr. Larissa Ibarra @ Mar 12 2018 4:11PM
== END 2018-03-12 16:39 | disposition home or self-care (01) ==
LOC: MW.ED 14:57
DX: J44.1 Chronic obstructive pulmonary disease with (acute) exacerbation (principal); D64.9 Anemia, unspecified; I10 Essential (primary) hypertension; I48.91 Unspecified atrial fibrillation; J44.9 Chronic obstructive pulmonary disease, unspecified; E11.9 Type 2 diabetes mellitus without complications; Z79.84 Long term (current) use of oral hypoglycemic drugs
CPT/HCPCS: 36415; 71046; 80048; 85025; 94640; 96374; 99284; J2930; J7620-GY